=== PATIENT | male | born 1970 | race Caucasian/White ===

== ENCOUNTER → 2018-11-05 | Outpatient (CLI) | payer OTHER ==
--- NOTE | 2018-11-05 11:01 | REP ---
CHEST, TWO VIEWS: There is no evidence of acute infiltrate. No pleural effusion is seen. The heart is normal in size. The mediastinal silhouette is unremarkable. The visualized osseous structures are intact. IMPRESSION: No acute pulmonary disease. Electronically Signed by Sivakumar Head MD 11/05/2018 05:30 P
== END ==
LOC: M LRY 10:39
PROVIDERS: ATTEND Nurse Practitioner Family
DX: R05 Cough (principal)
CPT/HCPCS: 71046; G0463

== ENCOUNTER 2022-09-12 07:52 | Day surgery (SDC) | payer OTHER ==
[~2022-09-12] VITALS: Ht 175.3 cm; Wt 112.0 kg
[~2022-09-12 07:52] MED LIST: NS 1,000 ML IV ONE
[2022-09-12] MEDS ORDERED: LISI20TA35 PO (08:33)
[2022-09-12] MEDS ORDERED: METO50TA7 PO (08:34)
[2022-09-12] MEDS ORDERED: SEA-1000 PO (08:34)
[2022-09-12] MEDS ORDERED: propofoL 200 MG/20 ML VIAL As Ordered ONE (10:42)
[2022-09-12 11:23] VITALS: BP 169/96
== END 2022-09-12 11:34 | disposition home or self-care (01) ==
LOC: M OPP 07:52
PROVIDERS: ATTEND Internal Medicine Gastroenterology
DX: Z12.11 Encounter for screening for malignant neoplasm of colon (principal); Z80.0 Family history of malignant neoplasm of digestive organs; K63.5 Polyp of colon; K64.4 Residual hemorrhoidal skin tags; K64.8 Other hemorrhoids; Z79.899 Other long term (current) drug therapy